=== PATIENT | female | born 1975 | race Caucasian/White ===

== ENCOUNTER 2021-08-25 13:41 | Emergency (ER) | payer OTHER ==
[~2021-08-25 13:41] MED LIST: ADDERALL 30 MG30 MG PO; ALLERGY SHOTS; ATORVASTATIN CA80 MG PO; BUSPIRONE HCL10 MG PO; EPIPEN0.3 MG/0.3 SC; ESCITALOPRAM OX20 MG PO; FENOGLIDE120 MG PO; FISH OIL 1,001000 MG PO; GLUCAGON; INSULIN PUMP; NEURONTIN400 MG PO; NORCO 5-325 TA1 EACH PO; NOVOLOG FL100 UNIT/1 SC; PHENERGAN25 M1 PO; PRINIVIL10 MG PO; PROAIR HFA8.5 GM INH; SINGULAIR10 MG PO; VICTOZA 3-0.6 MG/0.1 SC; VYVANSE50 MG PO; ZOFRAN4 MG PO; ZYRTEC10 M3 PO
[2021-08-25 15:03] LABS: BASOPHIL 0.4 % (0-2); HCT 42.7 % (37.0-47.0); HGB 14.6 g/dl (12.5-16.0); LYMPHOCYTE 18.4 % (15-48); MCHC 34.2 g/dL (32.0-36.0); MCV 87.7 fL (78.0-100.0); MONOCYTE 6.8 % (0-12); MPV 10.6 fL (6.0-9.5); NEUTROPHIL 72.9 % (41-80); NRBC 0; PLT 228 K/uL (150-400); RBC 4.87 M/uL (4.20-5.40); RDW 12.2 % (11.5-14.0); WBC 9.7 K/uL (4.0-10.5)
[2021-08-25 15:05] LABS: BILIRUBIN NEGATIVE (NEGATIVE); BLOOD 3+ Ery/uL (NEGATIVE); CLARITY CLOUDY (CLEAR); COLOR YELLOW (YELLOW); GLUCOSE (U) 3+ mg/dL (NORMAL); LEUKOCYTES TRACE Leu/uL (NEGATIVE); NITRITE POSITIVE (NEGATIVE); PROTEIN TRACE (LOW) mg/dL (NEGATIVE); SPECIFIC GRAVITY 1.025 (1.001-1.030); UROBILINOGEN 0.2 mg/dL (0.2-1.0)
[2021-08-25 15:08] LABS: AMPHETAMINES POSITIVE (NEGATIVE); BARBITURATES NEGATIVE (NEGATIVE); ECSTASY (MDMA) NEGATIVE (NEGATIVE); MARIJUANA (THC) NEGATIVE (NEGATIVE); METHADONE NEGATIVE (NEGATIVE); OPIATES NEGATIVE (NEGATIVE); OXYCODONE NEGATIVE (NEGATIVE)
[2021-08-25 15:17] LABS: BACTERIA 3+; URINARY RBC TNTC; URINARY WBC TNTC
[2021-08-25 15:28] LABS: ALBUMIN 4.1 g/dL (3.4-5.0); BILIRUBIN - TOTAL 0.5 mg/dL (0.2-1.0); BUN/CREAT RATIO (CALC) 19.4 RATIO; CREATININE 0.72 mg/dL (0.51-0.95); GLOBULIN (CALCULATION) 3.7 g/dL; POTASSIUM 4.1 mmol/L (3.5-5.1); TOTAL PROTEIN 7.8 g/dL (6.4-8.2)
[2021-08-25] MEDS ORDERED: BACTRIM DS TAB1 EACH PO (18:21)
[2021-08-25] MEDS ORDERED: ZOFRAN4 M1 PO (18:21)
== END 2021-08-25 19:19 | disposition home or self-care (01) ==
LOC: FER 13:41
PROVIDERS: Nurse Practitioner Family
DX: N39.0 Urinary tract infection, site not specified (principal); R10.84 Generalized abdominal pain; R11.0 Nausea; I10 Essential (primary) hypertension; E11.9 Type 2 diabetes mellitus without complications; J45.909 Unspecified asthma, uncomplicated; Z79.899 Other long term (current) drug therapy; Z79.4 Long term (current) use of insulin
CPT/HCPCS: 36415; 80053; 80305; 81001; 82150; 83690; 85025; 87076; 87088; 87186; J0696; J1885; J2405; J7030; Q9967